=== PATIENT | female | born 1945 | race Caucasian/White ===

== ENCOUNTER 2018-02-24 12:41 | Inpatient (IN) | payer MEDICARE ==
[~2018-02-24] VITALS: Ht 180.3 cm; Wt 82.7 kg
[2018-02-24] MEDS ORDERED: SODIUM CHLORIDE FLUSH 10ML SYR IVF ONE (13:00)
[2018-02-24] MEDS ORDERED: CEFTRIAXONE PMX 1GM/50ML 50 ML IV ONE (13:00)
[2018-02-24] MEDS ORDERED: PUMP300C PO (13:13)
[2018-02-24] MEDS ORDERED: RANI150T23 PO (13:13)
[2018-02-24 13:21] LABS: BASOPHILS # (AUTO) 0.02 x10^3/uL (0-0.1); BASOPHILS % (AUTO) 0 % (0-1); EOSINOPHILS # (AUTO) 0.24 x10^3/uL (0-0.4); EOSINOPHILS % (AUTO) 4 % (1-7); LYMPHOCYTES # (AUTO) 0.94 x10^3/uL (1-3.4); LYMPHOCYTES % (AUTO) 14 % (22-44); MD NO; MEAN CORPUSCULAR HEMOGLOBIN 28.2 pg (27.0-34.8); MEAN CORPUSCULAR HGB CONC 33.3 g/dL (32.4-35.8); MEAN CORPUSCULAR VOLUME 84.5 fL (80-100); MEAN PLATELET VOLUME 7.8 fL (7.4-10.4); MONOCYTES # (AUTO) 0.56 x10^3/uL (0.2-0.8); MONOCYTES % (AUTO) 8 % (2-9); NEUTROPHILS # (AUTO) 4.95 x10^3/uL (1.8-6.8); NEUTROPHILS % (AUTO) 74 % (42-75); PLATELET COUNT 264 x10^3/uL (130-400); RED BLOOD COUNT 4.13 x10^6/uL (3.82-5.3); RED CELL DISTRIBUTION WIDTH 15.3 % (9.6-15.2)
[2018-02-24 13:31] LABS: ALANINE AMINOTRANSFERASE 12 U/L (12-78); ALBUMIN 2.9 g/dL (3.4-5.0); ANION GAP 8 mmol/L (5-15); CALCIUM 9.3 mg/dL (8.5-10.1); CHLORIDE 108 mmol/L (98-107); CREATININE 0.82 mg/dL (0.55-1.02)
[2018-02-24 13:33] LABS: ALKALINE PHOSPHATASE 105 U/L (45-117); BILIRUBIN,TOTAL 0.3 mg/dL (0.2-1.0); TOTAL PROTEIN 7.1 g/dL (6.4-8.2)
[2018-02-24] MEDS ORDERED: CEFTRIAXONE PMX 1GM/50ML 50 ML ONE (13:44)
[2018-02-24] MEDS ORDERED: SODIUM CHLORIDE FLUSH 10ML SYR IVF PRN (15:00)
[2018-02-24 15:56] LABS: HCT (SEDRATE) 34.9 % (34.6-47.8)
[2018-02-24] MEDS ORDERED: ONDANSETRON 2MG/ML, 2ML IVPush PRN (16:00)
[2018-02-24] MEDS ORDERED: PHARMACOKINETIC MONITORING MC PRN (16:00)
[2018-02-24] MEDS ORDERED: VANCOMYCIN PER PHARMACY MC PRN (16:00)
[2018-02-24] MEDS ORDERED: LABETALOL 5MG/ML, 20ML IVPush PRN (16:00)
[2018-02-24] MEDS: SODIUM CHLORIDE 0.9% 1,000 ML IV SCH (16:05)
[2018-02-24] MEDS: morphine SULFATE 10 MG/ML, 1ML IVPush PRN ×2 (16:15→17:34)
[2018-02-24] MEDS: PIPERACILLIN/TAZO/PMX 4.5GM 100 ML IV SCH (17:27)
[2018-02-24 18:07] VITALS: BP 178/62
[2018-02-24] MEDS: CLINDAMYCIN PMX 600MG/50ML 50 ML IV SCH (18:16)
[2018-02-24 19:26] VITALS: BP 160/57
[2018-02-24] MEDS: VANCOMYCIN 1,600 MG in SODIUM CHLORIDE 0.9% 250 ML IV SCH (19:45)
[2018-02-24] MEDS ORDERED: FENTANYL PF 100 MCG/2ML ONE ×2 (20:44→21:25)
[2018-02-24] MEDS ORDERED: MIDAZOLAM 1 MG/ML, 2ML ONE (20:44)
[2018-02-24] MEDS ORDERED: DEXAMETHASONE 4 MG/ML, 1ML ONE (20:55)
[2018-02-24] MEDS ORDERED: PROPOFOL 10 MG/ML, 20ML ONE (20:55)
[2018-02-24] MEDS ORDERED: ONDANSETRON 2MG/ML, 2ML ONE (20:55)
[2018-02-24] MEDS ORDERED: GLYCOPYRROLATE 0.2MG/1ML, 5ML ONE (20:55)
[2018-02-24] MEDS ORDERED: OXYcodone 5 MG/5 ML ORAL.SOL UDC ONE (21:25)
[2018-02-24] MEDS ORDERED: PROMETHAZINE 25 MG/ML, 1ML IV PRN (21:30)
[2018-02-24] MEDS ORDERED: HALOPERIDOL 5 MG/ML IV PRN (21:30)
[2018-02-24] MEDS ORDERED: OXYcodone 5 MG/5 ML ORAL.SOL UDC PO PRN (21:30)
[2018-02-24] MEDS ORDERED: ONDANSETRON ODT 8 MG PO PRN (21:30)
[2018-02-24] MEDS ORDERED: FENTANYL PF 100 MCG/2ML IV PRN (21:30)
[2018-02-24] MEDS ORDERED: MIDAZOLAM 1 MG/ML, 2ML IV PRN (21:30)
[2018-02-24] MEDS ORDERED: MEPERIDINE/PF 25MG/0.5ML IVPush PRN (21:30)
[2018-02-24] MEDS ORDERED: LABETALOL 5MG/ML, 20ML IV PRN (21:30)
[2018-02-24] MEDS ORDERED: hydrALAzine 20 MG/ML, 1ML IV PRN (21:30)
[2018-02-24] MEDS ORDERED: ACETAMINOPHEN 325 MG TABLET PO PRN (21:30)
[2018-02-24] MEDS ORDERED: ALBUTEROL SULFATE 2.5 MG/3 ML NPPB PRN (21:30)
[2018-02-24] MEDS ORDERED: ALBUTEROL/IPRATROPIUM 2.5MG/0.5MG, 3 ML NPPB PRN (21:30)
[2018-02-24] MEDS ORDERED: morphine SULFATE 10 MG/ML, 1ML ONE (21:32)
[2018-02-24] MEDS: MORPHINE SULFATE 4 MG/ML, 1ML IVPush PRN ×4 (21:38→21:55)
[2018-02-25] VITALS (8 sets, daily range): BP systolic 99–123; BP diastolic 46–71
[2018-02-25] MEDS: PIPERACILLIN/TAZO/PMX 4.5GM 100 ML IV SCH ×4 (00:28→21:51)
[2018-02-25] MEDS: CLINDAMYCIN PMX 600MG/50ML 50 ML IV SCH ×4 (00:50→23:06)
[2018-02-25 04:53] LABS: ANION GAP 6 mmol/L (5-15); CALCIUM 8.9 mg/dL (8.5-10.1); CHLORIDE 110 mmol/L (98-107)
[2018-02-25 04:58] LABS: ALANINE AMINOTRANSFERASE 8 U/L (12-78); ALBUMIN 2.6 g/dL (3.4-5.0); ALKALINE PHOSPHATASE 87 U/L (45-117); BILIRUBIN,TOTAL 0.7 mg/dL (0.2-1.0); CREATININE 0.83 mg/dL (0.55-1.02); TOTAL PROTEIN 6.2 g/dL (6.4-8.2)
[2018-02-25 05:03] LABS: BASOPHILS # (AUTO) 0.01 x10^3/uL (0-0.1); BASOPHILS % (AUTO) 0 % (0-1); EOSINOPHILS # (AUTO) 0.01 x10^3/uL (0-0.4); EOSINOPHILS % (AUTO) 0 % (1-7); LYMPHOCYTES # (AUTO) 0.47 x10^3/uL (1-3.4); LYMPHOCYTES % (AUTO) 7 % (22-44); MD NO; MEAN CORPUSCULAR HEMOGLOBIN 28.1 pg (27.0-34.8); MEAN CORPUSCULAR HGB CONC 33.6 g/dL (32.4-35.8); MEAN CORPUSCULAR VOLUME 83.5 fL (80-100); MEAN PLATELET VOLUME 7.9 fL (7.4-10.4); MONOCYTES # (AUTO) 0.22 x10^3/uL (0.2-0.8); MONOCYTES % (AUTO) 3 % (2-9); NEUTROPHILS % (AUTO) 89 % (42-75); PLATELET COUNT 198 x10^3/uL (130-400); RED BLOOD COUNT 3.75 x10^6/uL (3.82-5.3); RED CELL DISTRIBUTION WIDTH 15.5 % (9.6-15.2)
[2018-02-25] MEDS: ACETAMINOPHEN 325 MG TABLET PO PRN ×3 (08:26→18:50)
[2018-02-25] MEDS: morphine SULFATE 10 MG/ML, 1ML IVPush PRN ×2 (10:05→13:47)
[2018-02-25] MEDS: SODIUM CHLORIDE 0.9% 1,000 ML IV SCH ×2 (11:00→21:58)
[2018-02-25 15:05] LABS: THYROID STIMULATING HORMONE 1.62 mIU/L (0.358-3.740)
[2018-02-25 17:34] LABS: TROPONIN I < 0.015 ng/mL (0.000-0.045)
[2018-02-25] MEDS ORDERED: IBUPROFEN 600 MG TABLET PO ONE (21:00)
[2018-02-25 22:47] LABS: TROPONIN I < 0.015 ng/mL (0.000-0.045)
[2018-02-26] MEDS: VANCOMYCIN 1,600 MG in SODIUM CHLORIDE 0.9% 250 ML IV SCH (01:13)
[2018-02-26 02:00] VITALS: BP 97/59
[2018-02-26] MEDS: ACETAMINOPHEN 325 MG TABLET PO PRN ×3 (02:52→23:59)
[2018-02-26] MEDS ORDERED: ATROPINE SYRINGE 0.1 MG/ML, 10ML ONE (03:31)
[2018-02-26 03:37] VITALS: BP 100/51
[2018-02-26] MEDS: ATROPINE SYRINGE 0.1 MG/ML, 10ML IVPush PRN ×3 (03:42→22:50)
[2018-02-26] MEDS: PIPERACILLIN/TAZO/PMX 4.5GM 100 ML IV SCH ×4 (03:50→21:41)
[2018-02-26 03:58] VITALS: BP 111/58
[2018-02-26 05:30] LABS: ANION GAP 3 mmol/L (5-15); CALCIUM 8.4 mg/dL (8.5-10.1); CHLORIDE 109 mmol/L (98-107); CREATININE 1.57 mg/dL (0.55-1.02)
[2018-02-26 05:36] LABS: BASOPHILS # (AUTO) 0.02 x10^3/uL (0-0.1); BASOPHILS % (AUTO) 0 % (0-1); EOSINOPHILS # (AUTO) 0.15 x10^3/uL (0-0.4); EOSINOPHILS % (AUTO) 2 % (1-7); LYMPHOCYTES # (AUTO) 1.27 x10^3/uL (1-3.4); LYMPHOCYTES % (AUTO) 21 % (22-44); MD NO; MEAN CORPUSCULAR HEMOGLOBIN 28.1 pg (27.0-34.8); MEAN CORPUSCULAR HGB CONC 33.4 g/dL (32.4-35.8); MEAN CORPUSCULAR VOLUME 84.3 fL (80-100); MEAN PLATELET VOLUME 8.4 fL (7.4-10.4); MONOCYTES # (AUTO) 0.44 x10^3/uL (0.2-0.8); MONOCYTES % (AUTO) 7 % (2-9); NEUTROPHILS # (AUTO) 4.16 x10^3/uL (1.8-6.8); NEUTROPHILS % (AUTO) 69 % (42-75); PLATELET COUNT 194 x10^3/uL (130-400); RED CELL DISTRIBUTION WIDTH 15.4 % (9.6-15.2)
[2018-02-26] MEDS: CLINDAMYCIN PMX 600MG/50ML 50 ML IV SCH ×4 (06:22→23:32)
[2018-02-26 08:04] VITALS: BP 98/63
[2018-02-26] MEDS: SODIUM CHLORIDE 0.9% 1,000 ML IV SCH ×2 (11:04→23:33)
[2018-02-26] MEDS ORDERED: PHARMACY MAY ADJ FOR RENAL FX MC PRN (13:30)
[2018-02-26 14:23] VITALS: BP 135/65
[2018-02-26 18:46] VITALS: BP 111/70
[2018-02-27 02:06] VITALS: BP 119/72
[2018-02-27] MEDS: PIPERACILLIN/TAZO/PMX 4.5GM 100 ML IV SCH ×4 (03:55→22:55)
[2018-02-27] MEDS: CLINDAMYCIN PMX 600MG/50ML 50 ML IV SCH (04:59)
[2018-02-27 05:29] LABS: BASOPHILS # (AUTO) 0.02 x10^3/uL (0-0.1); BASOPHILS % (AUTO) 0 % (0-1); EOSINOPHILS # (AUTO) 0.15 x10^3/uL (0-0.4); EOSINOPHILS % (AUTO) 3 % (1-7); LYMPHOCYTES # (AUTO) 0.77 x10^3/uL (1-3.4); LYMPHOCYTES % (AUTO) 13 % (22-44); MD NO; MEAN CORPUSCULAR HEMOGLOBIN 27.9 pg (27.0-34.8); MEAN CORPUSCULAR HGB CONC 33.1 g/dL (32.4-35.8); MEAN CORPUSCULAR VOLUME 84.3 fL (80-100); MEAN PLATELET VOLUME 8.6 fL (7.4-10.4); MONOCYTES # (AUTO) 0.48 x10^3/uL (0.2-0.8); MONOCYTES % (AUTO) 8 % (2-9); NEUTROPHILS # (AUTO) 4.62 x10^3/uL (1.8-6.8); NEUTROPHILS % (AUTO) 77 % (42-75); PLATELET COUNT 186 x10^3/uL (130-400); RED BLOOD COUNT 3.72 x10^6/uL (3.82-5.3); RED CELL DISTRIBUTION WIDTH 15.6 % (9.6-15.2)
[2018-02-27 05:47] LABS: CHLORIDE 111 mmol/L (98-107)
[2018-02-27 05:57] LABS: ANION GAP 7 mmol/L (5-15); CALCIUM 8.5 mg/dL (8.5-10.1); CREATININE 0.85 mg/dL (0.55-1.02)
[2018-02-27 07:13] LABS: VANCOMYCIN,RANDOM 11.1 mcg/mL
[2018-02-27] MEDS ORDERED: SODIUM CHLORIDE 0.9% 1,000 ML IV SCH (08:00)
[2018-02-27 08:06] VITALS: BP 106/59
[2018-02-27] MEDS ORDERED: VANCOMYCIN 1,500 MG in SODIUM CHLORIDE 0.9% 250 ML IV SCH (10:00)
[2018-02-27] MEDS ORDERED: VANCOMYCIN 1,600 MG in SODIUM CHLORIDE 0.9% 250 ML IV SCH (10:00)
[2018-02-27] MEDS ORDERED: POTASSIUM CHLORIDE 20 MEQ in SODIUM CHLORIDE 0.9% 250 ML IV ONE (10:00)
[2018-02-27] MEDS: morphine SULFATE 10 MG/ML, 1ML IVPush PRN (10:08)
[2018-02-27 10:41] LABS: CLOSTRIDIUM DIFFICILE ANTIGEN NEGATIVE; CLOSTRIDIUM DIFFICILE TOXIN NEGATIVE (Negative)
[2018-02-27] MEDS ORDERED: FENTANYL PF 100 MCG/2ML ONE ×2 (11:43→12:03)
[2018-02-27] MEDS ORDERED: LIDOCAINE/PF 1%, 30ML ONE (11:43)
[2018-02-27] MEDS ORDERED: CEFAZOLIN 1,000 MG ONE (11:43)
[2018-02-27] MEDS ORDERED: CEFAZOLIN PMX 1GM/50ML 50 ML ONE (11:43)
[2018-02-27] MEDS ORDERED: MIDAZOLAM 1 MG/ML, 5ML ONE (11:43)
[2018-02-27] MEDS ORDERED: DIPHENHYDRAMINE 50 MG/ML, 1ML ONE (11:43)
[2018-02-27] MEDS ORDERED: ACETAMINOPHEN 325 MG TABLET PO PRN (13:00)
[2018-02-27 14:00] VITALS: BP 174/70
[2018-02-27] MEDS ORDERED: ENALAPRILAT 1.25 MG/ML, 2ML IV PRN (16:30)
[2018-02-27 19:59] VITALS: BP 189/78
[2018-02-27 20:40] VITALS: BP 165/84
[2018-02-27] MEDS: SODIUM CHLORIDE 0.9% 1,000 ML IV SCH (20:40)
[2018-02-27] MEDS: SODIUM CHLORIDE FLUSH 10ML SYR IVF SCH (20:41)
[2018-02-28 02:16] VITALS: BP 193/69
[2018-02-28] MEDS: morphine SULFATE 10 MG/ML, 1ML IVPush PRN (02:40)
[2018-02-28 03:27] VITALS: BP 164/68
[2018-02-28] MEDS: PIPERACILLIN/TAZO/PMX 4.5GM 100 ML IV SCH ×4 (05:04→23:32)
[2018-02-28] MEDS: SODIUM CHLORIDE 0.9% 1,000 ML IV SCH ×2 (05:05→20:36)
[2018-02-28 05:29] LABS: BASOPHILS # (AUTO) 0.02 x10^3/uL (0-0.1); BASOPHILS % (AUTO) 0 % (0-1); EOSINOPHILS # (AUTO) 0.19 x10^3/uL (0-0.4); EOSINOPHILS % (AUTO) 3 % (1-7); LYMPHOCYTES # (AUTO) 0.79 x10^3/uL (1-3.4); LYMPHOCYTES % (AUTO) 14 % (22-44); MD NO; MEAN CORPUSCULAR HGB CONC 33.6 g/dL (32.4-35.8); MEAN CORPUSCULAR VOLUME 83.5 fL (80-100); MEAN PLATELET VOLUME 8.1 fL (7.4-10.4); MONOCYTES # (AUTO) 0.41 x10^3/uL (0.2-0.8); MONOCYTES % (AUTO) 7 % (2-9); NEUTROPHILS # (AUTO) 4.44 x10^3/uL (1.8-6.8); NEUTROPHILS % (AUTO) 76 % (42-75); PLATELET COUNT 181 x10^3/uL (130-400); RED BLOOD COUNT 3.77 x10^6/uL (3.82-5.3); RED CELL DISTRIBUTION WIDTH 15.3 % (9.6-15.2)
[2018-02-28 05:38] LABS: ANION GAP 7 mmol/L (5-15); CALCIUM 8.7 mg/dL (8.5-10.1); CHLORIDE 108 mmol/L (98-107); CREATININE 0.71 mg/dL (0.55-1.02)
[2018-02-28 07:29] VITALS: BP 186/60
[2018-02-28] MEDS ORDERED: POTASSIUM CHLORIDE 20 MEQ TAB.ER.PRT PO ONE ×2 (08:00→12:00)
[2018-02-28] MEDS ORDERED: GABAPENTIN 100 MG CAPSULE ONE (08:27)
[2018-02-28] MEDS: GABAPENTIN 100 MG CAPSULE PO SCH ×2 (08:30→13:35)
[2018-02-28] MEDS: SODIUM CHLORIDE FLUSH 10ML SYR IVF SCH ×2 (08:31→20:35)
[2018-02-28] MEDS ORDERED: LISINOPRIL 10 MG TABLET PO SCH ×2 (09:00→21:00)
[2018-02-28] MEDS: HYDROcodone/APAP 5/325 TABLET PO PRN ×2 (09:48→20:35)
[2018-02-28] MEDS ORDERED: SODIUM PHOSPHATE 4 MEQ/ML IV SCH (12:00)
[2018-02-28] MEDS ORDERED: SODIUM PHOSPHATE 30 MMOL in SODIUM CHLORIDE 0.9% 500 ML IV ONE (12:30)
[2018-02-28 15:00] VITALS: BP 160/75
[2018-02-28 19:34] VITALS: BP 150/70
[2018-03-01] MEDS: HYDROcodone/APAP 5/325 TABLET PO PRN ×3 (00:32→17:07)
[2018-03-01 03:02] VITALS: BP 171/71
[2018-03-01] MEDS: SODIUM CHLORIDE 0.9% 1,000 ML IV SCH (05:32)
[2018-03-01] MEDS: PIPERACILLIN/TAZO/PMX 4.5GM 100 ML IV SCH ×4 (05:33→22:52)
[2018-03-01] MEDS: GABAPENTIN 100 MG CAPSULE PO SCH ×3 (05:33→21:33)
[2018-03-01 05:36] LABS: BASOPHILS # (AUTO) 0.01 x10^3/uL (0-0.1); BASOPHILS % (AUTO) 0 % (0-1); EOSINOPHILS # (AUTO) 0.25 x10^3/uL (0-0.4); EOSINOPHILS % (AUTO) 5 % (1-7); LYMPHOCYTES % (AUTO) 12 % (22-44); MD NO; MEAN CORPUSCULAR HEMOGLOBIN 28.1 pg (27.0-34.8); MEAN CORPUSCULAR HGB CONC 33.6 g/dL (32.4-35.8); MEAN CORPUSCULAR VOLUME 83.8 fL (80-100); MEAN PLATELET VOLUME 8.1 fL (7.4-10.4); MONOCYTES # (AUTO) 0.38 x10^3/uL (0.2-0.8); MONOCYTES % (AUTO) 8 % (2-9); NEUTROPHILS # (AUTO) 3.87 x10^3/uL (1.8-6.8); NEUTROPHILS % (AUTO) 76 % (42-75); PLATELET COUNT 181 x10^3/uL (130-400); RED BLOOD COUNT 3.66 x10^6/uL (3.82-5.3)
[2018-03-01 05:44] LABS: CHLORIDE 109 mmol/L (98-107)
[2018-03-01 05:49] LABS: ALANINE AMINOTRANSFERASE 14 U/L (12-78); ALBUMIN 2.5 g/dL (3.4-5.0); ALKALINE PHOSPHATASE 76 U/L (45-117); ANION GAP 8 mmol/L (5-15); BILIRUBIN,TOTAL 0.4 mg/dL (0.2-1.0); CALCIUM 8.7 mg/dL (8.5-10.1); CREATININE 0.68 mg/dL (0.55-1.02); TOTAL PROTEIN 6.2 g/dL (6.4-8.2)
[2018-03-01 08:45] VITALS: BP 186/73
[2018-03-01] MEDS: NEUTRA PHOS K 250 MG TABLET PO SCH ×3 (09:17→21:33)
[2018-03-01] MEDS: LISINOPRIL 10 MG TABLET PO SCH ×2 (09:18→21:33)
[2018-03-01] MEDS: SODIUM CHLORIDE FLUSH 10ML SYR IVF SCH ×2 (09:18→21:34)
[2018-03-01] MEDS: MORPHINE SULFATE 4 MG/ML, 1ML IVPush PRN (10:32)
[2018-03-01 14:34] VITALS: BP 178/74
[2018-03-01 19:04] VITALS: BP 138/66
[2018-03-02] MEDS: HYDROcodone/APAP 5/325 TABLET PO PRN ×4 (00:11→16:18)
[2018-03-02 01:09] VITALS: BP 164/70
[2018-03-02 05:18] LABS: BASOPHILS # (AUTO) 0.01 x10^3/uL (0-0.1); BASOPHILS % (AUTO) 0 % (0-1); EOSINOPHILS # (AUTO) 0.25 x10^3/uL (0-0.4); EOSINOPHILS % (AUTO) 5 % (1-7); LYMPHOCYTES # (AUTO) 0.69 x10^3/uL (1-3.4); LYMPHOCYTES % (AUTO) 13 % (22-44); MD NO; MEAN CORPUSCULAR HGB CONC 33.6 g/dL (32.4-35.8); MEAN CORPUSCULAR VOLUME 83.2 fL (80-100); MEAN PLATELET VOLUME 8.5 fL (7.4-10.4); MONOCYTES % (AUTO) 10 % (2-9); NEUTROPHILS # (AUTO) 3.85 x10^3/uL (1.8-6.8); NEUTROPHILS % (AUTO) 73 % (42-75); PLATELET COUNT 172 x10^3/uL (130-400); RED CELL DISTRIBUTION WIDTH 15.9 % (9.6-15.2)
[2018-03-02 05:20] LABS: CHLORIDE 109 mmol/L (98-107)
[2018-03-02 05:25] LABS: ALBUMIN 2.5 g/dL (3.4-5.0); ANION GAP 7 mmol/L (5-15); CREATININE 0.83 mg/dL (0.55-1.02)
[2018-03-02] MEDS: PIPERACILLIN/TAZO/PMX 4.5GM 100 ML IV SCH ×3 (06:03→16:24)
[2018-03-02] MEDS: GABAPENTIN 100 MG CAPSULE PO SCH ×2 (06:03→14:47)
[2018-03-02 07:31] VITALS: BP 163/72
[2018-03-02] MEDS: SODIUM CHLORIDE FLUSH 10ML SYR IVF SCH (09:23)
[2018-03-02] MEDS: NEUTRA PHOS K 250 MG TABLET PO SCH (09:24)
[2018-03-02] MEDS: LISINOPRIL 10 MG TABLET PO SCH (09:27)
[2018-03-02] MEDS: MORPHINE SULFATE 4 MG/ML, 1ML IVPush PRN (11:41)
[2018-03-02] MEDS ORDERED: GABA-826 PO (14:17)
[2018-03-02] MEDS ORDERED: ALPR0.254 PO (14:17)
[2018-03-02] MEDS ORDERED: LISI-167 PO (14:17)
[2018-03-02 14:22] VITALS: BP 101/66
== END 2018-03-02 17:31 | DRG 242 ==
LOC: ED 14:44 → EDIP 14:45 → 3NE 15:48 → 4EST 02-25 15:54 → 5SO 02-25 23:17
PROVIDERS: ADMIT Internal Medicine; ATTEND Internal Medicine
PROC: 0JBP0ZZ Excision of Left Lower Leg Subcutaneous Tissue and Fascia, Open Approach (ICD-10-PCS; principal; 2018-02-25)
PROC: 0HBRXZZ Excision of Toe Nail, External Approach (ICD-10-PCS; 2018-02-25)
PROC: 0HBRXZZ Excision of Toe Nail, External Approach (ICD-10-PCS; 2018-02-25)
PROC: 0HBRXZZ Excision of Toe Nail, External Approach (ICD-10-PCS; 2018-02-25)
PROC: 0HBRXZZ Excision of Toe Nail, External Approach (ICD-10-PCS; 2018-02-25)
PROC: 0JH606Z Insertion of Pacemaker, Dual Chamber into Chest Subcutaneous Tissue and Fascia, Open Approach (ICD-10-PCS; 2018-02-27)
PROC: 02H63JZ Insertion of Pacemaker Lead into Right Atrium, Percutaneous Approach (ICD-10-PCS; 2018-02-27)
PROC: 02HK3JZ Insertion of Pacemaker Lead into Right Ventricle, Percutaneous Approach (ICD-10-PCS; 2018-02-27)
DX: R00.1 Bradycardia, unspecified (principal); M72.6 Necrotizing fasciitis; E43 Unspecified severe protein-calorie malnutrition; N17.0 Acute kidney failure with tubular necrosis; L03.116 Cellulitis of left lower limb; I50.32 Chronic diastolic (congestive) heart failure; L97.229 Non-pressure chronic ulcer of left calf with unspecified severity; I48.92 Unspecified atrial flutter; I16.0 Hypertensive urgency; E78.5 Hyperlipidemia, unspecified; Z68.25 Body mass index [BMI] 25.0-25.9, adult; R19.7 Diarrhea, unspecified; K21.9 Gastro-esophageal reflux disease without esophagitis; F17.210 Nicotine dependence, cigarettes, uncomplicated; J44.9 Chronic obstructive pulmonary disease, unspecified; D64.9 Anemia, unspecified; E87.6 Hypokalemia; M17.12 Unilateral primary osteoarthritis, left knee; M19.072 Primary osteoarthritis, left ankle and foot; B95.1 Streptococcus, group B, as the cause of diseases classified elsewhere; E11.9 Type 2 diabetes mellitus without complications; B95.61 Methicillin susceptible Staphylococcus aureus infection as the cause of diseases classified elsewhere; B96.20 Unspecified Escherichia coli [E. coli] as the cause of diseases classified elsewhere; L60.3 Nail dystrophy; B96.6 Bacteroides fragilis [B. fragilis] as the cause of diseases classified elsewhere; G89.29 Other chronic pain; I11.0 Hypertensive heart disease with heart failure; Z79.899 Other long term (current) drug therapy; Z83.3 Family history of diabetes mellitus; Z87.11 Personal history of peptic ulcer disease; Z71.6 Tobacco abuse counseling; Z98.51 Tubal ligation status
CPT/HCPCS: 0399T; 33208; 36415; 71045; 80048; 80053; 80202; 82040; 82550; 82962; 83605; 83735; 84100; 84145; 84443; 84484; 85025; 85651; 86140; 87040; 87070; 87075; 87076; 87077; 87147; 87176; 87186; 87205; 87324; 93005; 93306; 96374; 96375; 99156; 99157; C1779; C1785; C1892; J0461; J0690; J0696; J1100; J2250; J2405; J2543; J2704; J3010; J3370; J3480; J3490; J1200; J2270; J7030; J7040; J7050

== ENCOUNTER → 2018-05-12 | Outpatient (CLI) | payer MEDICARE ==
[~2018-05-12] MED LIST: ALPR0.254 PO; GABA-826 PO; LIDOCAINE-MPF 2%, 2ML ONE; LISI-167 PO; PUMP300C PO; RANI150T23 PO
== END | disposition home or self-care (01) ==
LOC: RAD 11:30
PROVIDERS: ATTEND Internal Medicine Geriatric Medicine
DX: Z02.9 Encounter for administrative examinations, unspecified (principal)
CPT/HCPCS: J3490